=== PATIENT | female | born 1940 | race Caucasian/White ===

== ENCOUNTER 2017-05-20 17:58 | Emergency (ER) | payer MEDICARE, MEDICAID ==
[~2017-05-20] VITALS: Ht 162.6 cm; Wt 75.0 kg
[~2017-05-20 17:58] MED LIST: LEVO75TA; [UNRECOGNIZED DRUG - OTHER]; [UNRECOGNIZED DRUG - OTHER]
[2017-05-20] MEDS ORDERED: CLONIDINE 0.2MG TABLET PO ONE (21:45)
[2017-05-20 22:42] LABS: BASOPHILS % 0.6 % (0.0-2.0); EOSINOPHILS % 1.5 % (0.0-5.0); HEMOGLOBIN. 13.3 g/dL (12.0-16.0); LYMPHOCYTES % 29.5 % (20.0-50.0); MEAN CORPUSCULAR HEMOGLOBIN 26.5 pg (28.0-32.0); MEAN CORPUSCULAR VOLUME 81.9 fL (81.0-99.0); MEAN PLATELET VOLUME 9.4 fl (7.4-10.4); MONOCYTES % 5.6 % (2.0-8.0); NEUTROPHILS % 62.8 % (40.0-76.0); PLATELET 321 x1000/uL (130-400); RED CELL DISTRIBUTION WIDTH 13.9 % (11.6-14.6)
[2017-05-20 22:45] LABS: CHLORIDE 105 mEq/L (98-107)
[2017-05-20 22:46] LABS: INR 1.1; PROTHROMBIN TIME 11.1 sec (9.4-11.6)
[2017-05-20 22:53] LABS: CARBON DIOXIDE 28 mEq/L (21-32)
[2017-05-20] MEDS ORDERED: HYDRALAZINE 20MG/ML VIAL IV ONE (23:15)
[2017-05-20 23:57] VITALS: BP 130/89
== END 2017-05-21 00:21 | disposition home or self-care (01) ==
LOC: ER 17:58
DX: I10 Essential (primary) hypertension (principal); R51 Headache; Z88.6 Allergy status to analgesic agent; Z90.49 Acquired absence of other specified parts of digestive tract
CPT/HCPCS: 36415; 70450; 80053; 85025; 85610; 93005; 99285

== ENCOUNTER 2019-11-25 07:05 | Emergency (ER) | payer MEDICARE, MEDICAID ==
[~2019-11-25] VITALS: Ht 165.1 cm; Wt 78.0 kg
[2019-11-25] MEDS ORDERED: HYDRALAZINE 20MG/ML VIAL IV ONE (07:30)
[2019-11-25] MEDS ORDERED: ACETAMINOPHEN 325MG TABLET PO ONE (07:30)
[2019-11-25 07:57] LABS: BASOPHILS % 0.8 % (0.0-2.0); EOSINOPHILS % 3.9 % (0.0-5.0); HEMATOCRIT. 38.2 % (36.0-48.0); HEMOGLOBIN. 12.9 g/dL (12.0-16.0); LYMPHOCYTES % 29.9 % (20.0-50.0); MEAN CORPUSCULAR HEMOGLOBIN 27.6 pg (28.0-32.0); MEAN CORPUSCULAR VOLUME 81.9 fL (81.0-99.0); MEAN PLATELET VOLUME 9.2 fl (7.4-10.4); NEUTROPHILS % 58.4 % (40.0-76.0); PLATELET 276 x1000/uL (130-400); RED BLOOD CELL COUNT 4.66 mill/uL (4.2-5.4); RED CELL DISTRIBUTION WIDTH 14.5 % (11.6-14.6)
[2019-11-25 08:06] LABS: CHLORIDE 109 mEq/L (98-107)
[2019-11-25 10:12] VITALS: BP 126/66
== END 2019-11-25 10:13 | disposition home or self-care (01) ==
LOC: ER 07:05
DX: M79.622 Pain in left upper arm (principal); I10 Essential (primary) hypertension; Z88.8 Allergy status to other drugs, medicaments and biological substances; Z79.899 Other long term (current) drug therapy; Z90.49 Acquired absence of other specified parts of digestive tract
CPT/HCPCS: 36415; 71045; 80053; 83880; 84484; 85025; 93005; 93971; 96374; 99285; J0360

== ENCOUNTER 2023-11-27 07:15 | Emergency (ER) | payer BC, MEDICAID ==
[~2023-11-27] VITALS: Ht 157.5 cm; Wt 66.0 kg
[2023-11-27 07:19] VITALS: PULSE 91; RESP 20
[2023-11-27 07:44] VITALS: BP 204/102; TEMP 98.1; O2SAT 98
[2023-11-27 08:10] LABS: CHLORIDE 107 mEq/L (98-107); POTASSIUM 3.8 mEq/L (3.5-5.1); SODIUM 140 mEq/L (136-145)
[2023-11-27 08:11] LABS: CALCIUM 9.1 mg/dL (8.7-10.4); CARBON DIOXIDE 25 mEq/L (21-32)
[2023-11-27 08:14] LABS: BASOPHILS % 0.8 % (0.0-2.0); EOSINOPHILS % 3.7 % (0.0-5.0); HEMATOCRIT. 36.6 % (36.0-48.0); HEMOGLOBIN. 12.2 g/dL (12.0-16.0); MEAN CORPUSCULAR HEMOGLOBIN 27.5 pg (28.0-32.0); MEAN CORPUSCULAR HGB CONC 33.3 g/dL (31.0-37.0); MEAN CORPUSCULAR VOLUME 82.8 fL (81.0-99.0); MEAN PLATELET VOLUME 9.1 fl (7.4-10.4); MONOCYTES % 6.7 % (2.0-8.0); NEUTROPHILS % 60.8 % (40.0-76.0); PLATELET 312 x1000/uL (130-400); RED BLOOD CELL COUNT 4.42 mill/uL (4.2-5.4); RED CELL DISTRIBUTION WIDTH 14.9 % (11.6-14.6); WHITE BLOOD COUNT 5.9 x1000/uL (4.5-11.0)
[2023-11-27 08:16] LABS: CREATININE 0.6 mg/dL (0.6-1.0); GLUCOSE 122 mg/dL (70-105); UREA NITROGEN BLOOD 15 mg/dL (9-23)
[2023-11-27 08:32] LABS: PARTIAL THROMBOPLASTIN TIME 27.3 sec (23.4-31.0); PROTHROMBIN TIME 11.3 sec (9.6-11.0)
[2023-11-27 08:34] LABS: ALANINE AMINOTRANSFERASE 13 IU/L (10-49); ASPARTATE AMINOTRANSFERASE 16 IU/L (<34)
[2023-11-27 08:35] LABS: ALBUMIN 4.4 g/dL (3.2-4.8); BILIRUBIN DIRECT 0.1 mg/dL (<=3.0); BILIRUBIN TOTAL 0.6 mg/dL (0.1-1.0)
[2023-11-27 08:48] LABS: TROPONIN I HIGH SENSITIVITY 56 ng/L (3.0-34)
[2023-11-27] MEDS ORDERED: ASPIRIN 325MG EC TABLET PO ONE (09:00)
== END 2023-11-27 09:34 | disposition left against medical advice (07) ==
LOC: ER 07:15
DX: I16.1 Hypertensive emergency (principal); I10 Essential (primary) hypertension; I83.892 Varicose veins of left lower extremity with other complications; Z88.6 Allergy status to analgesic agent; Z90.49 Acquired absence of other specified parts of digestive tract; Z86.39 Personal history of other endocrine, nutritional and metabolic disease
CPT/HCPCS: 36415; 71045; 80048; 80076; 83880; 84484; 85025; 93005; 93971; 99291

== ENCOUNTER 2024-12-14 13:31 | Emergency (ER) | payer BC, MEDICAID ==
[~2024-12-14] VITALS: Ht 154.9 cm; Wt 77.0 kg
[~2024-12-14 13:31] MED LIST changes: +ASPI-1406 PO; +DICL100G58 TP; +IRBE300T25 PO; +IRBE300T42 MT; +LEVO100T9 PO; -LEVO75TA; +LIP40 PO; -[UNRECOGNIZED DRUG - OTHER]; -[UNRECOGNIZED DRUG - OTHER]
[2024-12-14 13:55] VITALS: O2SAT 97
[2024-12-14] MEDS: CLONIDINE 0.1MG TABLET PO ONE (14:34)
[2024-12-14 14:53] LABS: BASOPHILS % 0.7 % (0.0-2.0); EOSINOPHILS % 2.8 % (0.0-5.0); HEMATOCRIT. 37.4 % (36.0-48.0); HEMOGLOBIN. 12.5 g/dL (12.0-16.0); LYMPHOCYTES % 20.4 % (20.0-50.0); MEAN PLATELET VOLUME 8.9 fl (7.4-10.4); MONOCYTES % 7.3 % (2.0-8.0); NEUTROPHILS % 68.8 % (40.0-76.0); PLATELET 284 x1000/uL (130-400); RED BLOOD CELL COUNT 4.60 mill/uL (4.2-5.4); RED CELL DISTRIBUTION WIDTH 14.1 % (11.6-14.6)
[2024-12-14 15:09] LABS: CREATININE 0.7 mg/dL (0.6-1.0); UREA NITROGEN BLOOD 15 mg/dL (9-23)
[2024-12-14 15:10] LABS: ASPARTATE AMINOTRANSFERASE 15 IU/L (<34)
[2024-12-14 15:11] LABS: BILIRUBIN TOTAL 0.3 mg/dL (0.1-1.0); PROTEIN TOTAL 7.4 g/dL (6.0-8.3)
[2024-12-14 15:42] LABS: TROPONIN I HIGH SENSITIVITY 53 ng/L (3.0-34)
[2024-12-14] MEDS: CLONIDINE 0.1MG TABLET PO NR ×2 (16:06→16:11)
[2024-12-14] MEDS: ASPIRIN 81MG TABLET PO ONE (17:09)
[2024-12-14 17:45] LABS: TROPONIN I HIGH SENSITIVITY 54 ng/L (3.0-34)
[2024-12-14 17:50] VITALS: BP 163/83; PULSE 74; RESP 20; TEMP 36.7; O2SAT 98
== END 2024-12-14 18:45 | disposition home or self-care (01) ==
LOC: ER 13:33
DX: I10 Essential (primary) hypertension (principal); I51.7 Cardiomegaly; R79.89 Other specified abnormal findings of blood chemistry; R06.02 Shortness of breath; Z79.82 Long term (current) use of aspirin; Z88.6 Allergy status to analgesic agent; Z86.39 Personal history of other endocrine, nutritional and metabolic disease; Z79.899 Other long term (current) drug therapy; Z90.49 Acquired absence of other specified parts of digestive tract
CPT/HCPCS: 36415; 71045; 80053; 83880; 84484; 85025; 93005; 99285

== ENCOUNTER 2025-04-10 08:56 | Emergency (ER) | payer BC ==
[~2025-04-10] VITALS: Ht 162.6 cm; Wt 72.0 kg
[2025-04-10 09:13] VITALS: O2SAT 98
[2025-04-10 09:41] LABS: CLARITY URINE CLOUDY (CLEAR); COLOR URINE YELLOW (YELLOW); GLUCOSE URINE NEGATIVE (NEGATIVE); KETONES URINE NEGATIVE (NEGATIVE); LEUKOCYTE ESTERASE URINE 2+ (NEGATIVE); NITRITE URINE NEGATIVE (NEGATIVE); OCCULT BLOOD URINE 2+ (NEGATIVE); PH URINE 6.5 (4.5-8.0); PROTEIN URINE TRACE (NEGATIVE); SPECIFIC GRAVITY URINE 1.020 (1.005-1.030); UROBILINOGEN URINE 0.2 E.U./dL (0.2-1.0)
[2025-04-10 10:02] LABS: SQUAMOUS EPITHELIAL CELL URINE 1+ /lpf (RARE/1+)
[2025-04-10 10:03] LABS: RBC URINE TNTC /hpf (0-2)
[2025-04-10 10:05] LABS: BACTERIA URINE TRACE
[2025-04-10 10:51] LABS: BASOPHILS % 0.4 % (0.0-2.0); EOSINOPHILS % 1.5 % (0.0-5.0); HEMATOCRIT. 36.5 % (36.0-48.0); HEMOGLOBIN. 12.1 g/dL (12.0-16.0); LYMPHOCYTES % 34.2 % (20.0-50.0); MEAN PLATELET VOLUME 9.3 fl (7.4-10.4); MONOCYTES % 6.9 % (2.0-8.0); NEUTROPHILS % 57.0 % (40.0-76.0); PLATELET 292 x1000/uL (130-400); RED BLOOD CELL COUNT 4.38 mill/uL (4.2-5.4); RED CELL DISTRIBUTION WIDTH 14.9 % (11.6-14.6)
[2025-04-10 11:20] LABS: CREATININE 0.7 mg/dL (0.6-1.0); UREA NITROGEN BLOOD 14 mg/dL (9-23)
[2025-04-10] MEDS ORDERED: CEFP200T13 MT (12:08)
[2025-04-10 12:13] VITALS: BP 176/92; PULSE 70; RESP 16; TEMP 36.7; O2SAT 99
== END 2025-04-10 12:18 | disposition home or self-care (01) ==
LOC: ER 09:44
DX: N39.0 Urinary tract infection, site not specified (principal); E03.9 Hypothyroidism, unspecified; I10 Essential (primary) hypertension; Z90.49 Acquired absence of other specified parts of digestive tract; Z79.899 Other long term (current) drug therapy; Z79.82 Long term (current) use of aspirin; Z88.6 Allergy status to analgesic agent
CPT/HCPCS: 36415; 74176; 80048; 81003; 85025; 99282; 99284